=== PATIENT | male | born 1990 | race African-American/Black ===

== ENCOUNTER 2019-10-23 16:39 | Emergency (ER) | payer OTHER, SELFPAY ==
[2019-10-24 11:49] LABS: SARS-CoV-2 MS2 Positive; SARS-CoV-2 N Gene Positive; SARS-CoV-2 S Gene Positive; SARS-CoV-2 orf1ab Positive
== END 2019-10-23 17:30 | disposition home or self-care (01) ==
LOC: ERS 16:39
DX: U07.1 COVID-19 (principal); F17.290 Nicotine dependence, other tobacco product, uncomplicated
CPT/HCPCS: 87635; 99283; U0003